=== PATIENT | female | born 2000 | race Caucasian/White ===

== ENCOUNTER 2024-08-29 17:56 | Emergency (ER) | payer OTHER, SELFPAY ==
--- NOTE | 2024-08-29 18:11 | ED.GENADULT ---
HPI - General Adult General Chief complaint: General Medical Stated complaint: Nausea, light headed, dehydration Time Seen by Provider: 08/29/24 19:52 Source: patient Mode of arrival: ambulatory Limitations: no limitations History of Present Illness ED Provider: Elizabeth Brown NP HPI narrative: Patient is a 24-year-old female who presents emergency department for evaluation. She is a LMP 07/11/2024 with positive home test approximately 1 week ago. Has not yet established care with an OB provider. She reports that over the past 3 days she has been feeling nauseous and having some lightheadedness. She has been eating less than usual. She states adamantly that she has remained well hydrated, drinking multiple bottles of water daily. She denies abdominal pain. Denies abnormal vaginal bleeding or discharge. No pelvic pain or cramping. Related Data Previous Rx's ?Medication ?Instructions ?Recorded doxylamine succinate 25 mg tablet 25 mg PO BEDTIME PRN nausea #20 08/29/24 ([employer] (doxylamine)) tabs vits no.126-ferrous fum 1 tab PO DAILY #30 tabs 08/29/24 28 mg iron-folic acid 800 mcg tablet (Classic ) pyridoxine (vitamin B6) 25 mg 25 mg PO TID #30 tabs 08/29/24 tablet Allergies Allergy/AdvReac Type Severity Reaction Status Date / Time fruit Allergy Hives Uncoded 08/29/24 18:16 Review of Systems Review of Systems: Yes all other systems are reviewed and are negative PMFSH Past Medical History Attestation statement: The following information was validated with the patient. Source: old records reviewed Social History Social History Alcohol intake: former Smoked in Last 30 Days: No Use of substances other than those prescribed or required for medical reasons: No Advance Directives: No Advance Directives Information Provided: Yes Patient : Yes Physical Exam ED Vital Signs: Vital Signs - 24 hr 08/29/24 18:12 08/29/24 20:15 08/29/24 20:15 Temperature 97.5 F Pulse Rate 82 78 89 Respiratory Rate 16 Blood Pressure 125/79 98/70 103/76 Pulse Oximetry 100 Oxygen Delivery Method Room Air 08/29/24 20:16 08/29/24 21:40 Temperature 97.9 F Pulse Rate 90 90 Respiratory Rate 16 Blood Pressure 109/80 109/80 Pulse Oximetry 99 Oxygen Delivery Method Room Air BMI result Body Mass Index 18.1 Appearance: Alert.?Oriented to person, place and time. No acute distress.?Normal affect. CVS: Heart sounds normal. Normal heart rate and rhythm.? Pulses normal.?? Respiratory: No respiratory distress.? Lung sounds clear to auscultation bilaterally?? Abdomen: Soft and non-tender. Normoactive bowel sounds. Skin: Skin warm and dry.? Normal skin color.? Extremities: No lower extremity edema.? Neuro: Moves all extremities spontaneously. Sensation intact bilaterally. Ambulates with normal steady gait. Course Course Course Narrative: This is an RME: Additional HPI, ROS, PE not included below will be deferred to primary provider. RME assessment and note performed by: Cristiana Matias PA-C 24-year-old female here for 3 days of nausea, lightheadedness. States she feels dehydrated. Took test at home which was positive 1 week ago. LMP: 07/11. Medical Decision Making Medical Decision Making MDM Narrative: Patient is a 24-year-old female presenting for evaluation of nausea and lightheadedness in the setting of early as per HPI. Overall she is well-appearing, nontoxic, afebrile. She has no neurological deficits. Orthostatic vital signs are negative. She has serum labs obtained prior to my assumption. CBC is without leukocytosis anemia or thrombocytopenia. No electrolyte derangement. No NICANOR. LFTs unremarkable. HCG 48,335, based on LMP estimated due date of 04/17/2024 correlating with her hCG levels. She has not established OB care. I advised her of her local options to establish care with, also discuss the use of Pyridium and doxylamine at bedtime for nausea associated with . She has no concerning symptoms to suggest ectopic . She has a benign physical examination. I did discuss with her obtaining a urinalysis to assure no urinary tract infection, she would like to leave the department at this time, she denies any dysuria, urinary frequency/urgency/hesitancy, does not want to wait any longer for urinalysis. At this time feel that she is stable for discharge home, outpatient follow-up with OB and given strict return precautions. Differential Diagnosis Differential Diagnoses: The differential diagnosis associated with the presentation includes (See narrative above) Admission/Observation Consideration of admission/observation: Escalation of care including admission/observation considered Lab Data MDM Lab Attestation statement: I reviewed the patient's lab results. (See narrative above) 08/29/24 18:48 08/29/24 18:48 Labs: Lab Results 08/29/24 Range/Units 18:48 WBC 9.8 (4.8-10.8) X10*3/uL RBC 4.51 (4.20-5.50) X10*6/uL Hgb 13.1 (12.0-16.0) g/dl Hct 37.9 (37.0-47.0) % MCV 84.0 (80.0-98.0) fL MCH 29.0 (27.0-33.0) pg MCHC 34.6 (31.0-35.0) g/dl RDW 14.0 (11.0-16.0) % Plt Count 298 (160-400) X10*3/uL MPV 11.9 (9.4-12.3) fL Immature Gran % (Auto) 0.3 (0.0-0.4) % Neut % (Auto) 62.3 (45-73) % Lymph % (Auto) 28.0 (20-40) % Cris[place] % (Auto) 6.1 (2-11) % Eos % (Auto) 2.5 (0-4) % Baso % (Auto) 0.8 (0-2) % Lymph # (Auto) 2.7 (1.2-4.9) X10*3/uL [place] # (Auto) 0.6 (0.1-1.2) X10*3/uL Eos # (Auto) 0.2 (0.0-0.4) X10*3/uL Baso # (Auto) 0.1 (0.0-0.2) X10*3/uL Abs Immat Gran (auto) 0.03 (0.00-0.03) X10*3/uL Absolute Neuts (auto) 6.1 (2.0-8.3) x10*3/uL Absolute Nucleated RBC 0.000 (0.0-0.012) X10*3/uL Nucleated RBC % (auto) 0.0 (0.0-0.2) /100WBC Sodium 136 (135-145) mmol/L Potassium 3.7 (3.3-5.1) mmol/L Chloride 105 (96-108) mmol/L Carbon Dioxide 23 (22-29) mmol/L Anion Gap 12 (12-20) BUN 13 (9-16) mg/dL Creatinine 0.59 (0.5-1.4) mg/dL Estim Creat Clear Calc 106.3 Estimated GFR > 60 Random Glucose 88 (60-115) mg/dL Calcium 9.1 (8.4-10.2) mg/dL Magnesium 1.9 (1.6-2.6) mg/dL Total Bilirubin 0.5 (0.0-1.0) mg/dL AST 18 (5-31) U/L ALT 15 (0-31) U/L Alkaline Phosphatase 75 (39-117) U/L Total Protein 7.2 (6.5-8.0) g/dL Albumin 4.6 (3.5-5.0) g/dL Beta HCG, Quant 54216 mIU/mL Independent Historian Clinical information obtained from an independent historian. History obtained from or confirmed by: Spouse External Record Review External record reviewed: Outpatient record Prescription Management I considered prescription management with: Other (See narrative above) Discharge Plan Discharge Clinical Impression: related nausea, antepartum Patient Disposition: Home, Self-Care Instructions: Acute Nausea and Vomiting (ED) Additional Instructions: Be sure to stay well hydrated, drink plenty of fluids, eat small more frequent meals throughout the day, slowly change positions. Prescription for vitamin B6/pyridoxine and Unisom/doxy Antunez has been sent to the pharmacy to help with nausea. Take as prescribed. As discussed, you will need to make a decision as to where he would like to establish your OB care, please consider doing this soon that so that you may establish an appointment. You may return to emergency department any new or worsening symptoms or concerns. Please see list of local OBGYN providers below: OBGYN and Midwifery [facility] [address] [phone] [facility] [address] [phone] [facility] [address] [place] [phone] [phone] Prescriptions: New pyridoxine (vitamin B6) 25 mg tablet 25 mg PO TID Qty: 30 0RF [employer] (doxylamine) 25 mg tablet 25 mg PO BEDTIME PRN (Reason: nausea) Qty: 20 0RF Classic 28 mg iron- 800 mcg tablet 1 tab PO DAILY Qty: 30 0RF Referrals: Physician,Unknown J [Primary Care Provider, Medical] Interventions: ED Discharge Assessment Last Done: 08/29/24 21:40 Discharge Date/Time: 08/29/24 21:45 Print Language: Slovak
[2024-08-29 18:12] VITALS: BP 125/79; PULSE 82; RESP 16; TEMP 36.4; O2SAT 100; BMI 18.1
[2024-08-29 18:52] LABS: MANUAL DIFF FLAG NO
[2024-08-29 19:14] LABS: Alanine Aminotransferase 15 U/L (0-31); Albumin Level 4.6 g/dL (3.5-5.0); Alkaline Phosphatase 75 U/L (39-117); Anion Gap 12 (12-20); Aspartate Amino Transferase 18 U/L (5-31); Bilirubin Total 0.5 mg/dL (0.0-1.0); Blood Urea Nitrogen 13 mg/dL (9-16); Calcium 9.1 mg/dL (8.4-10.2); Carbon Dioxide 23 mmol/L (22-29); Chloride 105 mmol/L (96-108); Creatinine Clr Calc Pharmacy 106.3; Estimated Glomerular Filt Rate > 60; Glucose Random 88 mg/dL (60-115); Magnesium 1.9 mg/dL (1.6-2.6); Potassium 3.7 mmol/L (3.3-5.1); Sodium 136 mmol/L (135-145); Total Protein 7.2 g/dL (6.5-8.0)
[2024-08-29 19:15] LABS: Basophils Absolute Auto 0.1 X10*3/uL (0.0-0.2); Basophils Percent Auto 0.8 % (0-2); Eosinophils Absolute Auto 0.2 X10*3/uL (0.0-0.4); Eosinophils Percent Auto 2.5 % (0-4); Hematocrit 37.9 % (37.0-47.0); Hemoglobin 13.1 g/dl (12.0-16.0); Imm Gran Abs Auto 0.03 X10*3/uL (0.00-0.03); Imm Gran Pct Auto 0.3 % (0.0-0.4); Lymphocytes Absolute Auto 2.7 X10*3/uL (1.2-4.9); Mean Corpuscular HGB Conc 34.6 g/dl (31.0-35.0); Mean Platelet Volume 11.9 fL (9.4-12.3); Monocytes Absolute Auto 0.6 X10*3/uL (0.1-1.2); Monocytes Percent Auto 6.1 % (2-11); Neutrophils Absolute Auto 6.1 x10*3/uL (2.0-8.3); Neutrophils Percent Auto 62.3 % (45-73); Platelet Count 298 X10*3/uL (160-400); Red Blood Count 4.51 X10*6/uL (4.20-5.50); White Blood Count 9.8 X10*3/uL (4.8-10.8)
[2024-08-29 20:15] VITALS: BP 103/76; BP 98/70; PULSE 78; PULSE 89
[2024-08-29 20:16] VITALS: BP 109/80; PULSE 90
[2024-08-29 21:40] VITALS: BP 109/80; PULSE 90; RESP 16; TEMP 36.6; O2SAT 99
== END 2024-08-29 21:45 | disposition home or self-care (01) ==
PROVIDERS: Emergency Provider Internal Medicine
DX: R11.2 Nausea with vomiting, unspecified (principal); R42 Dizziness and giddiness; E86.0 Dehydration; Z79.899 Other long term (current) drug therapy
CPT/HCPCS: 36415; 80053; 83735; 84702; 85025; 99283; 99284

== ENCOUNTER 2024-12-26 16:53 | Emergency (ER) | payer OTHER, SELFPAY ==
--- NOTE | ~2024-12-26 | XR_ITS ---
EXAMINATION: XR CHEST 2 VIEWS HISTORY: short of breath COMPARISON: There are no prior studies available for comparison. FINDINGS: PA and lateral views of the chest are submitted. The lungs are expanded and clear. There is no pleural effusion, pneumothorax, or pulmonary vascular congestion. The heart is normal in size. The bones are intact. There is gaseous distention of the stomach. XR/XR chest 2V IMPRESSION: Normal examination of the chest. Electronically signed by: Richard Cox MD 12/27/2024 07:08 AM EDT
[2024-12-26 17:01] VITALS: BP 123/82; PULSE 119; RESP 18; TEMP 36.5; O2SAT 100; BMI 16.7
--- NOTE | 2024-12-26 17:05 | ED_ITS ---
HPI - General Adult General Chief complaint: Asthma Stated complaint: sob/asthma Time Seen by Provider: 12/26/24 17:51 Source: patient Mode of arrival: ambulatory Limitations: no limitations History of Present Illness ED Provider: HPI narrative: 24-year-old with a history of asthma for many years, has been having worsening symptoms for the past 2 weeks, she does use Ventolin more often she reports and use his Symbicort and regular basis nonsmoker nondrinker does not vape. No new allergies or exposures reported. Related Data Previous Rx's ?Medication ?Instructions ?Recorded doxylamine succinate 25 mg tablet 25 mg PO BEDTIME PRN nausea #20 08/29/24 ([employer] (doxylamine)) tabs vits no.126-ferrous fum 1 tab PO DAILY #30 ta bs 08/29/24 28 mg iron-folic acid 800 mcg tablet (Classic ) pyridoxine (vitamin B6) 25 mg 25 mg PO TID #30 tabs tablet prednisone 20 mg tablet 40 mg (2 x 20 mg) PO DAILY 5 days 12/26/24 #10 tabs Allergies Allergy/AdvReac Type Severity Reaction Status Date / Time fruit Allergy Hives Uncoded 12/26/24 17:03 Review of Systems 2 Constitutional: Constitutional: Reports as per [facility] Social History Social History Alcohol intake: former Physical Exam ED Exam Exam: General: ?Appears of stated age ? ?PERRLA, EOMI, MMM, uvula midline, TMs unremarkable ? Neck: Supple, no LAD ? ?CV: RRR, no obvious murmurs appreciated ? ?Resp: ?No wheezing rales rhonchi no stridor moving air well ? Abd: ?Bowel sounds are present, no tenderness no rebound no rigidity ? ?MSK: FROM, strength 5/5 all extremities ? Skin: Warm, dry, intact, ? ?Neuro: ?Alert and oriented x3, moving upper and lower extremities symmetrically, no obvious facial asymmetry noted, cranial nerves 2-12 intact Vital Signs: Vital Signs - 24 hr 12/26/24 17:01 Temperature 97.7 F Pulse Rate 119 H Respiratory Rate 18 Blood Pressure 123/82 Pulse Oximetry 100 Oxygen Delivery Method Room Air BMI result Body Mass Index 16.7 Course Course Course Narrative: This is a Rapid Medical Examination (RME) performed by Clarissa Mcnulty PA-C in triage. Full HPI, ROS, assessment and treatment plan per primary provider in the Main ED. Hx: 24 nyo F here w/ sob. History of asthma, using inhalers at home without improvement. Last used this approximately 3 hours ago. No recent travel/long car rides. No OCP use. PE/vitals: Tachycardic. Lungs CTA throughout. Plan: Labs, viral swabs, EKG, chest x-ray Medical Decision Making Medical Decision Making [facility] Narrative: 6:21 PM 12/26/2024 (Dr. Zoran Tang): Overall well-appearing, chest x- ray without pneumonia, pneumothorax, somewhat hyperinflated lungs, we will get a nebulizer treatment, initiate steroids, ECG with tachycardia, I did not elicit PE risk factors, she is not on control pills, has been using Ventolin that can explain her tachycardia, no evidence for dehydration clinically or blood work Differential Diagnosis Differential Diagnoses: The differential diagnosis associated with the presentation includes (Asthma exacerbation, pneumonia, PE, allergies) Admission/Observation Consideration of admission/observation: Escalation of care including admission/observation considered Lab Data [facility] Lab Attestation statement: I reviewed the patient's lab results. 12/26/24 17:19 12/26/24 17:19 Labs: Lab Results 12/26/24 Range/Units 17:19 WBC 12.0 H (4.8-10.8) X10*3/uL RBC 4.51 (4.20-5.50) X10*6/uL Hgb 12.6 (12.0-16.0) g/dl Hct 39.0 (37.0-47.0) % MCV 86.5 (80.0-98.0) fL MCH 27.9 (27.0-33.0) pg MCHC 32.3 (31.0-35.0) g/dl RDW 14.3 (11.0-16.0) % Plt Count 259 (160-400) X10*3/uL MPV 12.0 (9.4-12.3) fL Immature Gran % (Auto) 0.3 (0.0-0.4) % Neut % (Auto) 71.7 (45-73) % Lymph % (Auto) 17.3 L (20-40) % [place] % (Auto) 7.9 (2-11) % Eos % (Auto) 2.0 (0-4) % Baso % (Auto) 0.8 (0-2) % Lymph # (Auto) 2.1 (1.2-4.9) X10*3/uL [place] # (Auto) 1.0 (0.1-1.2) X10*3/uL Eos # (Auto) 0.2 (0.0-0.4) X10*3/uL Baso # (Auto) 0.1 (0.0-0.2) X10*3/uL Abs Immat Gran (auto) 0.04 H (0.00-0.03) X10*3/uL Absolute Neuts (auto) 8.6 H (2.0-8.3) x10*3/uL Absolute Nucleated RBC 0.000 (0.0-0.012) X10*3/uL Nucleated RBC % (auto) 0.0 (0.0-0.2) /100WBC Sodium 143 (135-145) mmol/L Potassium 3.3 (3.3-5.1) mmol/L Chloride 110 H (96-108) mmol/L Carbon Dioxide 25 (22-29) mmol/L Anion Gap 11 L (12-20) BUN 14 (9-16) mg/dL Creatinine 0.65 (0.5-1.4) mg/dL Estim Creat Clear Calc 91.5 Estimated GFR > 60 Random Glucose 82 (60-115) mg/dL Calcium 9.4 (8.4-10.2) mg/dL Magnesium 2.0 (1.6-2.6) mg/dL Total Bilirubin 0.5 (0.0-1.0) mg/dL AST 22 (5-31) U/L ALT 23 (0-31) U/L Alkaline Phosphatase 90 (39-117) U/L Total Protein 7.4 (6.5-8.0) g/dL Albumin 4.6 (3.5-5.0) g/dL COVID-19 (MARIO) Negative (Negative) COVID-19 Clin Com See Note Influenza Type A (BLAIR) Negative (Negative) Influenza Type B (BLAIR) Negative (Negative) Influenza A & B Note See Note S. pyogenes GrpA BLAIR Negative (Negative) Independent Interpretation I performed an independent interpretation of an: EKG (122 sinus tachycardia) Discharge Plan Discharge Clinical Impression: Asthma with acute exacerbation Additional Instructions: Two puffs of Ventolin every 4 hours for the rest of the day and at least for half update tomorrow, continue steroids starting tomorrow 1st dose in the ER, follow up with the PCP, chest x-ray without any evidence of infection, blood work reassuring, EKG with fast heart rate likely due to Ventolin, , you did have slightly elevated heart rate which may be due to Ventolin, few spike fevers if you have worsening issues breathing any other concerns come back to the ER otherwise follow up with the your PCP Prescriptions: New prednisone 20 mg tablet 40 mg PO DAILY 5 Days Qty: 10 0RF No Action pyridoxine (vitamin B6) 25 mg tablet 25 mg PO TID Qty: 30 0RF [employer] (doxylamine) 25 mg tablet 25 mg PO BEDTIME PRN (Reason: nausea) Qty: 20 0RF Classic 28 mg iron- 800 mcg tablet 1 tab PO DAILY Qty: 30 0RF Print Language: Tanzanian
--- NOTE | 2024-12-26 17:05 | ECG_ITS ---
Test Reason : sob Blood Pressure : */* mmHG Vent. Rate : 122 BPM Atrial Rate : 122 BPM P-R Int : 148 ms QRS Dur : 70 ms QT Int : 288 ms P-R-T Axes : 73 97 -7 degrees QTcB Int : 410 ms Sinus tachycardia Possible Left atrial enlargement Rightward axis T wave abnormality, consider inferior ischemia Abnormal ECG No previous ECGs available Referred By: Mimi Mcnulty Electronically Signed By: JEWEL NDIAYE MD
[2024-12-26 17:30] LABS: MANUAL DIFF FLAG NO
[2024-12-26 17:32] LABS: Hematocrit 39.0 % (37.0-47.0); Hemoglobin 12.6 g/dl (12.0-16.0); Imm Gran Abs Auto 0.04 X10*3/uL (0.00-0.03); Imm Gran Pct Auto 0.3 % (0.0-0.4); Lymphocytes Absolute Auto 2.1 X10*3/uL (1.2-4.9); Mean Corpuscular HGB Conc 32.3 g/dl (31.0-35.0); Mean Corpuscular Hemoglobin 27.9 pg (27.0-33.0); Mean Corpuscular Volume 86.5 fL (80.0-98.0); NRBC Abs Auto 0.000 X10*3/uL (0.0-0.012); NRBC Pct Auto 0.0 /100WBC (0.0-0.2); Platelet Count 259 X10*3/uL (160-400); Red Blood Count 4.51 X10*6/uL (4.20-5.50); White Blood Count 12.0 X10*3/uL (4.8-10.8)
[2024-12-26 17:47] LABS: Alanine Aminotransferase 23 U/L (0-31); Albumin Level 4.6 g/dL (3.5-5.0); Alkaline Phosphatase 90 U/L (39-117); Anion Gap 11 (12-20); Aspartate Amino Transferase 22 U/L (5-31); Blood Urea Nitrogen 14 mg/dL (9-16); COVID-19 Test Negative (Negative); Calcium 9.4 mg/dL (8.4-10.2); Carbon Dioxide 25 mmol/L (22-29); Chloride 110 mmol/L (96-108); Creatinine Clr Calc Pharmacy 91.5; Estimated Glomerular Filt Rate > 60; IDNOW Serial# 08D9AD1C; IDNOW Serial# 55D5AD1C; IDNOW Serial# 58CA691E; Influenza B2 Negative (Negative); Magnesium 2.0 mg/dL (1.6-2.6); Potassium 3.3 mmol/L (3.3-5.1); Sodium 143 mmol/L (135-145); Strep A Nucleic Acid Negative (Negative); Total Protein 7.4 g/dL (6.5-8.0)
[2024-12-26 17:55] LABS: Troponin-I High Sensitivity < 2.7 ng/L (<3.5-17.0)
[2024-12-26 18:00] VITALS: BP 110/70; PULSE 109; RESP 22; TEMP 36.9; O2SAT 98
[2024-12-26] MEDS: levalbuterol HCL 3.75 MG, Ipratropium Bromide 0.5 MG INHALE (18:32)
[2024-12-26 18:34] VITALS: PULSE 116; RESP 22; O2SAT 95
[2024-12-26 20:06] VITALS: BP 125/70; PULSE 116; RESP 15; TEMP 36.8; O2SAT 99
[2024-12-26 20:17] VITALS: BP 125/70; PULSE 116; RESP 15; TEMP 36.8; O2SAT 99
--- OUTSIDE RECORDS SUMMARY | 2024-12-26 22:32 | XMS_ITS | Clinical Summary ---
Author Organization [facility] Address [address] [place] [phone] Phone Care Team Providers Care Supervisor Transferring And Boxing Name Role Phone Oscar Méndez MD Primary Care Provider Allergies Active Allergy Reactions Criticality Noted Date Comments Fruit Extracts 03/28/2024 Medications albuterol (VENTOLIN HFA) 90 mcg/actuation inhaler Inhale 2 puffs into the lungs every 4 (four) hours as needed for shortness of breath/dyspnea . Active budesonide-form oterol (SYMBICORT) 80-4.5 mcg/actuation inhaler Inhale 2 puffs into the lungs 2 (two) times a day. 4 Active oseltamivir (TAMIFLU) 75 mg capsule Take 1 capsule (75 mg total) by mouth 2 (two) times a day. 9 capsule 5 Active Social History Tobacco Use Types Packs/Day Years Used Date Smoking Tobacco: Never Assessed Education Answer Date Recorded Are you interested in more education? Not on yaneth e 03/29/2024 Are you concerned about learning? Not on file 03/29/2024 No 03/29/2024 No 03/29/2024 Digital Access Answer Date Recorded No 03/29/2024 No 03/29/2024 Reliable internet access at home? Not on file 03/29/2024 Device with a working camera? Not on file Intimate Partner Violence Answer Date R ecorded Are you denied basic needs s uch as food, clothing, or medical care? No 03/28/2024 In the past 12 months have y ou been in a relationship with a person who hurts, threatens, or tries to control you? No 03/28/2024 Are you denied basic needs s uch as food, clothing, or medical care? No 03/28/2024 In the past 12 months have y ou been in a relationship with a person who hurts, threatens, or tries to control you? No 03/28/2024 Comments Unknown Sex and Gender Information Value Date Recorded Sex Assigned at Female 03/28/2024 10:41 PM EST Legal Sex Female 10:17 PM EST Gender Identity Female 03/28/2024 10:41 PM EST Sexual Orientation Don't know 03/28/2024 10 :41 PM EST Last Filed Vital Signs Vital Sign Reading Time Taken Comments Blood Pressure 105/65 03/29/2024 12:28 AM EST Pulse 108 03/29/2024 12:28 AM EST Temperature 37.4 C (99.3 F) 03/29/2024 12:28 AM EST Respiratory Rate 20 03/29/2024 12:28 AM EST Oxygen Saturation 97% 03/29/2024 12:28 AM EST Inhaled Oxygen Concentration - - Weight 42.2 kg (93 lb) 03/28/2024 10:25 PM EST Height 157.5 cm (5' 2 ) 03/28/2024 10:25 PM EST Body Mass Index 17.01 03/28/2024 10:25 PM EST Plan of Treatment Health Maintenance Due Date Last Done Comments Adult Td,Tdap Booster 2002 DEPRESSION SCREENING 2014 SMOKING Hx and SMOKELESS TOB ACCO SCREENING 08/20/2015 HPV VACCINES (1 - 3-dose series) 2017 CHLAMYDIA SCREENING 2018 MENINGOCOCCAL VACCINES (B) ( 1 of 2 - Standard) 2018 HEPATITIS C SCREENING 2020 HIV ONE-TIME SCREENING (18-6 5 YEARS) 2020 PAP SMEAR 08/20/2023 INFLUENZA VACCINE (#1) 2024 COVID-19 VACCINE ( - 2024-2 6 season) 2024 HEPATITIS A VACCINES Aged Out No long er eligible based on patient's age to complete this topic HIB VACCINES Aged Out No longer eligi ble based on patient's age to complete this topic MENINGOCOCCAL VACCINES (ACWY) Aged Out No longer eligible based on patient's age to complete this topic PNEUMOCOCCAL VACCINES (0-49 years) Aged Out No longer eligible based on patient's age to complete this topic Medical Devices Not on file Insurance Care Teams Supervisor Transferring And Boxing Relationship Specialty Start Date End Date Oscar Méndez MD [address] [id number] PCP - General Pediatrics 03/28/24 Additional Source Comments The information contained in this document represents components of the legal health record. It is not the complete legal health record.[facility]
--- OUTSIDE RECORDS SUMMARY | 2024-12-26 22:32 | XMS_ITS | Data Portability ---
Author Organization DIEGO Maldonado [facility], [address] Address [address] [place] [address] Assessment No assessment recorded. Plan of Treatment Reminders Order Date Submit Date Provider Last Modified By Organization Details Last Modified Time Details Appointments None recorded. Lab rapid SARS CoV 2 Ag, QL IA, respiratory specimen 2021 022 [place] [address] [facility], [address] [place] [address], [address], 14:30:00 rapid flu (A+B) 2021 [place] [address] [facility], [address] [place] [address], [address], 14:30:00 Referral None recorded. Procedures None recorded. Surgeries None recorded. Imaging None recorded. Medication Orders None recorded. Patient TargetsNo targets recorded. Patient Instructions Encounter Date Encounter Id Patient Instructions Last Modified By Organization Details Last Modified Time 03/03/2022 [id number] things to do when you have covid-19 [email or web address] Not available 03/03/2022 14:30:00 coronavirus (covid-19): care instructions [email or web address] Not available 03/03/2022 14:30:00 cough: care instructions [email or web address] Not available 03/03/2022 14:30:00 If you did not have any COVID 19 Symptoms According to CDC guidelines and current clinical data it is still possible that you may develop new symptoms or even spread the virus to others for up to 10 days after a positive COVID-19 test result. The purpose of this clinical plan is to monitor you for the development of new symptoms and to help guide you when it is safe to go back to work as well as stop self-quarantine practices. If you were/are currently experiencing COVID19 Symptoms. You no longer need isolation precautions or any further testing when: 1) At least 5 days have passed since your symptoms first appeared and your symptoms are resolving or improved 2) You have had no fever for at least 24 hours without the use medicine that reduces fever 3) Use of an N-95 mask for the remaining 5 days. OR 3) If you are still symptomatic without significant improvement continue to isolate for the full 10 days from onset of symptoms. We understand that this is a stressful time for you and your family, but we are here to guide you through the process. Please message us if you have any questions or concerns. Caution: Please go to the nearest ER/call 911 for ambulance transport immediately if you develop the following symptoms: difficulty breathing, pain with deep breaths, coughing up blood, difficulty talking, difficulty swallowing fluids/food, chest pain/tightness, palpitations, severe headache, severe neck pain, dizziness, feeling faint, muscle weakness, numbness/tingling , vision changes, speech changes, seizure, unusual bruising, abdominal pain, vomiting blood, blood in your stool, confusion, or any other potentially life-threatening symptoms. We are including here additional information for your review on COVID-19 background and prevention tips. [email or web address] Not available 03/03/2022 14:29:59 Reason for Referral None Reported. Results Created Date Observation Date Name Description Value Unit Range Abnormal Flag Note LastModifiedBy Organization Detail LastModifiedTime 03/03/20 22 03/03/2022 rapid flu (A+B) Unknown Analyte Normal = Negati ve Not Available [facility] [address] [place], [address], 03/03/2022 13:28:34 03/03/20 22 03/03/2022 rapid flu (A+B) Unknown Analyte negati ve Not Available _[facility] [address] [place] [address] [place], [address], 03/03/2022 13:28:34 03/03/20 22 03/03/2022 rapid flu (A+B) Unknown Analyte negati ve Not Available [facility] [address], [place], [address], 03/03/2022 13:28:34 03/03/20 22 03/03/2022 rapid flu (A+B) Unknown Analyte Normal = Negati ve Not Available [address] [place] [address], [place], [address], 03/03/2022 13:28:34 03/03/20 22 03/03/2022 rapid SARS CoV 2 Ag, QL IA, respi rator y speci men Unknown Analyte Normal =Negat luis a Not Available [address] [place] [address], [place], [address], 03/03/2022 13:28:30 03/03/20 22 03/03/2022 rapid SARS CoV 2 Ag, QL IA, respi rator y speci men Unknown Analyte positi ve Not Available [address] [place] [address], [place], [address], 03/03/2022 13:28:30 Result Notes None recorded. Problems Name Problem SNOMED Code Status Onset Date Resolution Date Notes Provider Name and Address Organization Details Recorded Time Asthma 046915478 Active 022 DIEGO Castano - [facility] 03/03/2022 13:28:03 Problem Notes None recorded. Medical Equipment None Reported. Allergies No known drug allergies Medications Name Sig Start Date Stop Date Status Note LastModified by Organization Details LastModified Time hyoscyamine 0.125 mg disintegrati ng tablet Place 1 tablet every 4 hours by sublingual route. active Not Available Not Available No t Available Ventolin HFA 90 mcg/actuatio n aerosol inhaler Inhale 2 puffs every 4 hours by inhalation route. active Not Available Not Available No t Available Singulair active Not Available Not Sophy ilable Not Available Symbicort active Not Available Not Sophy ilable Not Available Vitals Date Recorded Oxygen saturation Oxygen saturation in Arterial blood by Pulse oximetry Heart rate Respiratory rate Body temperature Body height Body mass index (BMI) [Percentile] Per age and sex Body mass index (BMI) Body weight Systolic And Diastolic Provider Name and Address Organization Details Last Updated DateTime 99 % 99 % 99 /min 20 /min 99.3 [degF] 162.56 cm 2 % 17.2 kg/m2 44145.2 4 g 120/82 mm[Hg] Viviane Salmeron [facility] 13:37:33 Social History Question Answer Notes LastModified by Codeoscopic Details LastModified Time Tobacco Smoking Status Never Smoker Viviane stone PA [facility] 03/03/2022 13:28:21 Have You Had Direct Contact, Or Contact During Intimacy, With Monkeypox Rash, Scabs, Or Body Fluids From A Person With Monkeypox? No Information not available 03/03/2022 Have You Recently Traveled Abroad? No Information not available 03/03/2022 Sex: Unknown Functional Status Question Answer Note LastModified by [facility] [place] Details LastModified Time Do you use any illicit or recreational drugs? No Information not available 03/03/2022 Do you or have you ever used any other forms of tobacco or nicotine? No Information not available 03/03/2022 What is your level of alcohol consumption? None Information not available 03/03/2022 Mental Status None recorded. Family History Relationship Description Onset Age of this Age Resolved Age Notes LastModified by Organization Details LastModified Time Father No current problems or disability Not available 03/03 13:28:08 Mother No current problems or disability Not available 03/03 13:28:08 Medical History No medical history recorded. Gynecological HistoryNo gynecological history recorded. Obstetrics History GPAL:G 0 P 0 0 0 0 Immunizations Vaccine Type Date Status Note Provider Nam e and Address Organization Details Recorded Time COVID-19, mRNA, LNP-S, PF, 30 mcg/0.3 mL dose, eugenia-sucrose 06/02/2021 completed Viviane Faviola null, PA - [facility] 03/03/2022 13:26:55 COVID-19, mRNA, LNP-S, PF, 30 mcg/0.3 mL dose 10/19/2020 completed Viviane Landers null, PA - [facility] 03/03/2022 13:26:55 COVID-19, mRNA, LNP-S, PF, 30 mcg/0.3 mL dose 11/09/2020 completed Viviane Faviola null, PA - [facility] 03/03/2022 13:26:55 Past Encounters Encounter ID Performer Location Encounter Start Date Encounter Closed Date Diagnosis/Indication Diagnosis SNOMED-CT Code Diagnosis ICD10 Code Diagnosis IMO Codes Diagnosis Note [id number] [address] [address] [address] [facility] [place] [address] 09/26/2020 12:21:04 09/26/2020 13:45:37 [id number] [address] [address] [address] [place] [address] 10/06/2020 15:41:08 10/06/2020 16:39:05 [id number] [address] [address] [place] [address] 07/20/2021 09:52:19 07/20/2021 11:10:45 [id number] [address] [place] [address] 10/07/2016 16:17:51 10/07/2016 17:05:57 [id number] [address] [address] [place] [address] 01/11/2021 12:10:59 01/11/2021 13:26:30 [id number] DIEGO DICKINSON [address] [place] [address] 03/03/2022 11:49:43 03/03/2022 14:38:20 Acute upper respiratory infection 89228389 J06.9 COVID-19 339894341 U07.1 Health Concerns Section Related Observation LastModified by Organization Detai ls LastModified Time None Recorded Concern Status LastModified by Organization Details LastModified Time None Recorded Advance Directives Directive None Recorded Payers Insurance Date Sequence Insurance Name Policy Number Policy Fernández Covered Member ID Fernández Member ID Guarantor Name 09/13/2022 1 [facility] [employer] - TOGETHER (MEDICAID HMO) [id number] [id number] [address] 03/03/20[address] OC-ESCRE[address] [facility] [address] Notes Date Note Type Note Provider Name and Address Organization Details Recorded Time 03/03/2022 text/html Nahomi is a 21 yo F with PMH asthma here for URI symptoms onset a couple days. Boyfriend tested positive for covid. Sister tested positive for flu last week. Flu/covid testing DIEGO SAMUEL [address] [place] [place], [address], [place] - [facility] 03/03/2022 14:37:35 OBGyn Episode No OBEpisode recorded.
--- OUTSIDE RECORDS SUMMARY | 2024-12-26 22:32 | XMS_ITS | Clinical Summary ---
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 Role Phone Unavailable Primary Care Provider Unavailabl e Encounters Date Type Department Care Team Description 10/09/2024 Travel from Last 3 Months Social History Tobacco Use Types Packs/Day Years Used Date Smoking Tobacco: Never Assessed Comments Unknown Sex and Gender Information Value Date Recorded Sex Assigned at Not on file Legal Sex Female 11:58 AM EDT Gender Identity Not on file Sexual Orientation Not on file Plan of Treatment Health Maintenance Due Date Last Done Comments Hepatitis C Virus Screening 2002 HIV Screening 08/20/2015 HPV Vaccines (1 - 3-dose series) 2017 DTaP/Tdap/Td Vaccines (1 - Tdap) 2021 Hepatitis B Vaccines (1 of 3 - 19+ 3-dose series) 2021 COVID-19 Vaccine ( - 2023-2 5 season) 2024 Pneumococcal Vaccine: Pediat renu (0-5 Years) and At-Risk Patients (6 to 49 Years) Aged Out No longer eligible b ased on patient's age to complete this topic
== END 2024-12-26 20:18 | disposition home or self-care (01) ==
PROVIDERS: Physician Assistant Medical; Emergency Provider Emergency Medicine
DX: J45.901 Unspecified asthma with (acute) exacerbation (principal); R06.02 Shortness of breath; R00.0 Tachycardia, unspecified; R10.22 Pelvic and perineal pain left side; Z79.899 Other long term (current) drug therapy; Z11.52 Encounter for screening for COVID-19
CPT/HCPCS: 36415; 71046; 80053; 83735; 84484; 84702; 85025; 87502; 87635; 87651; 93005; 94640; 99284; J8540

== ENCOUNTER → 2024-12-26 17:03 | Outpatient (BNV) | payer SELFPAY | PROVIDERS: Emergency Provider Emergency Medicine; Visit Provider Radiology Diagnostic Radiology | DX: R06.02 Shortness of breath (principal) | CPT/HCPCS: 71046 ==

== ENCOUNTER → 2024-12-26 17:05 | Outpatient (BNV) | payer SELFPAY | PROVIDERS: Emergency Provider Emergency Medicine; Visit Provider Internal Medicine Cardiovascular Disease | DX: R00.0 Tachycardia, unspecified (principal) | CPT/HCPCS: 93010 ==

== ENCOUNTER 2025-01-28 17:12 | Emergency (ER) | payer OTHER, SELFPAY ==
--- NOTE | ~2025-01-28 | XR_ITS ---
CLINICAL HISTORY: SOB, cough Chest Radiographs, 2 views Comparison: 12/26/24 Findings: No cardiomegaly. Normal mediastinal contours. No pneumothorax. No opacity. No pleural effusion. No acute findings in the upper abdomen. No acute fracture. Impression: No acute findings. This document has been electronically signed by: Winnie Castillo MD on 01/28/2025 17:57:21
[2025-01-28 17:17] VITALS: BP 125/85; PULSE 98; RESP 16; TEMP 35.8; O2SAT 100; BMI 17.5
--- NOTE | 2025-01-28 17:20 | ED_ITS ---
HPI - SOB/Dyspnea General Chief Complaint: Asthma Stated Complaint: Shortness Of Breath Related Data Previous Rx's ?Medication ?Instructions ?Recorded doxylamine succinate 25 mg tablet 25 mg PO BEDTIME PRN nausea #20 08/29/24 ([facility]-[employer] (doxylamine)) tabs vits no.126-ferrous fum 1 tab PO DAILY #30 ta bs 08/29/24 28 mg iron-folic acid 800 mcg tablet (Classic ) pyridoxine (vitamin B6) 25 mg 25 mg PO TID #30 tabs tablet prednisone 20 mg tablet 40 mg (2 x 20 mg) PO DAILY 5 days 12/26/24 #10 tabs Allergies Allergy/AdvReac Type Severity Reaction Status Date / Time fruit Allergy Hives Uncoded 01/28/25 17:18 [facility] Social History Social History Alcohol intake: former Advance Directives: No Advance Directives Information Provided: No Physical Exam Vital Signs: Vital Signs: Last Vital Signs Temp 96.5 F L 01/28/25 17:17 Pulse 98 01/28/25 17:17 Resp 16 01/28/25 17:17 BP 125/85 01/28/25 17:17 Pulse Ox 100 01/28/25 17:17 O2 Del Method Room Air 01/28/25 17:17 BMI result Body Mass Index 17.5 Course Course Course Narrative: This is an RME: Additional HPI, ROS, PE not included below will be deferred to primary provider. RME assessment and note performed by: Rowena Cespedes PA-C This is a 24 year old female who presents to the ER with complaints of asthma exacerbation x 2 days. Was seen here in December for same and was put on prednisone, feels as though her symptoms have not resolved. Of note, pt had a medicated assisted termination. No recent travels, surgery or hospitalizations. Plan: Xray, viral swabs, further Er eval needed Reevaluation(s) Reevaluation #1: Patient left without completing treatment. Medical Decision Making Lab Data Labs: Lab Results 01/28/25 Range/Units 17:42 Influenza Type A (PCR) NEGATIVE (Negative) Influenza Type B (PCR) NEGATIVE (Negative) RSV RNA Qual (PCR) NEGATIVE (Negative) SARS-CoV-2 RNA (RT-PCR) NEGATIVE (Negative) Discharge Plan Discharge Clinical Impression: Asthma Patient Disposition: Left W/O Completing Treatment Prescriptions: No Action pyridoxine (vitamin B6) 25 mg tablet 25 mg PO TID Qty: 30 0RF Wal-[facility]uro (doxylamine) 25 mg tablet 25 mg PO BEDTIME PRN (Reason: nausea) Qty: 20 0RF Classic 28 mg iron- 800 mcg tablet 1 tab PO DAILY Qty: 30 0RF prednisone 20 mg tablet 40 mg PO DAILY 5 Days Qty: 10 0RF Discharge Date/Time: 01/28/25 19:38
[2025-01-28 18:23] LABS: Resp Syncy Virus RNA Qual PCR NEGATIVE (Negative); SARS COV2 PCR INHOUSE NEGATIVE (Negative)
--- OUTSIDE RECORDS SUMMARY | 2025-01-28 20:39 | XMS_ITS | Clinical Summary ---
Author Organization [facility] Address [address] [place] [phone] Phone Care Team Providers Care Hotel Yardperson Name Role Phone Oscar Méndez MD Primary [...] Devices Not on file Insurance Care Teams Hotel Yardperson Relationship Specialty Start Date End Date Oscar Méndez MD [address] [address] PCP - General Pediatrics 03/28/24 Additional Source Comments The information contained in this document represents components of the legal health record. It is not the complete legal health record.[facility]
--- OUTSIDE RECORDS SUMMARY | 2025-01-28 20:39 | XMS_ITS ---
Author Name [facility] Organization Unknown Care Team Organization Name Specialty Phone Email Start Date End [facility] 10/09/2024 [facility] ([facility]
--- OUTSIDE RECORDS SUMMARY | 2025-01-28 20:39 | XMS_ITS | Data Portability ---
Author Organization [facility], [address] Address [address] [place] [address] Assessment No assessment recorded. Plan of Treatment Reminders Order Date Submit Date Provider Last Modified By Organization Details Last Modified Time Details Appointments None recorded. Lab rapid SARS CoV 2 Ag, QL IA, respiratory specimen 2021 022 [place] [address] [facility], [address] [place] [address], [address], 14:30:00 rapid flu (A+B) 2021 [place] [address] [facility], [address] [place] [address], [address], 14:30:00 Referral None recorded. Procedures None recorded. Surgeries None recorded. Imaging None recorded. Medication Orders None recorded. Patient TargetsNo targets recorded. Patient Instructions Encounter Date Encounter Id Patient Instructions Last Modified By Organization Details Last Modified Time 03/03/2022 [id number] 10 things to do when you have [...] = Negati ve Not Available [facility] [address] [place], [address], 03/03/2022 13:28:34 03/03/20 22 03/03/2022 rapid flu (A+B) Unknown Analyte negati ve Not Available [address] [place] [address] [place], [address], 03/03/2022 13:28:34 03/03/20 22 03/03/2022 rapid flu (A+B) Unknown Analyte negati ve Not Available [facility] [address], [place], [address], 03/03/2022 13:28:34 03/03/20 22 03/03/2022 rapid flu (A+B) Unknown Analyte Normal = Negati ve Not Available [address] [place] [address], [place], [address], 03/03/2022 13:28:34 03/03/20 22 03/03/2022 rapid SARS CoV 2 Ag, QL IA, respi rator y speci men Unknown Analyte Normal =Negat luis a Not Available [address] [place] [address], [place], [address], 03/03/2022 13:28:30 03/03/20 22 03/03/2022 rapid SARS CoV 2 Ag, QL IA, respi rator y speci men Unknown Analyte positi ve Not Available [address] [place] [address], [place], [address], 03/03/2022 13:28:30 Result Notes None recorded. Problems Name Problem SNOMED Code Status Onset Date Resolution Date Notes Provider Name and Address Organization Details Recorded Time Asthma 669530007 Active 022 DIEGO Castano - [facility] [...] Not Available Vitals Date Recorded Oxygen saturation Heart rate Respiratory rate Body temperature Body height Body mass index (BMI) [Percentile] Per age and sex Body mass index (BMI) Body weight Systolic And Diastolic Provider Name and Address Organization Details Last Updated DateTime 2 99 % 99 /min 20 /min 99.3 [degF] 162.56 cm 2 % 17.2 kg/m2 67308.2 4 g 120/82 mm[Hg] Viviane Salmeron PA - [facility] 2 13:37:33 Social History Question Answer Notes LastModified by Organizat ion Details LastModified Time Tobacco Smoking Status Never Smoker Viviane stone PA - [facility] 03/03/2022 13:28:21 Have You Had Direct Contact, Or Contact During Intimacy, With Monkeypox Rash, Scabs, Or Body Fluids From A Person With Monkeypox? No Information not available 03/03/2022 Have You Recently Traveled Abroad? No Information not available 03/03/2022 Sex: Unknown Functional Status Question Answer Note LastModified by Organizat ion Details LastModified Time Do you use any [...] mcg/0.3 mL dose, eugenia-sucrose 06/02/2021 completed Viviane Euclid null, PA - [facility] 03/03/2022 13:26:55 COVID-19, mRNA, LNP-S, PF, 30 mcg/0.3 mL dose 10/19/2020 completed Viviane Faviola null, PA - [facility] 03/03/2022 13:26:55 COVID-19, mRNA, LNP-S, PF, 30 mcg/0.3 mL dose 11/09/2020 completed Viviane Faviola null, PA - [facility] 03/03/2022 13:26:55 Past Encounters Encounter ID Performer Location Encounter Start Date Encounter Closed Date Diagnosis/Indication Diagnosis SNOMED-CT Code Diagnosis ICD10 Code Diagnosis IMO Codes Diagnosis Note [id number] [address] [address] [facility] [place] [address] 09/26/2020 12:21:04 09/26/2020 13:45:37 [id number] [address] [place] [address] 10/06/2020 15:41:08 10/06/2020 16:39:05 [id number] [address] [address] [place] [address] 07/20/2021 09:52:19 07/20/2021 11:10:45 [id number] [address] [place] [address] 10/07/2016 16:17:51 10/07/2016 17:05:57 [id number] [address] [address] [address] [place] [address] 01/11/2021 12:10:59 01/11/2021 13:26:30 [id number] DIEGO DICKINSON [address] [place] [address] 03/03/2022 11:49:43 03/03/2022 14:38:20 Acute upper respiratory infection 85335490 J06.9 COVID-19 411012462 U07.1 Health Concerns Section Related Observation LastModified by Organization Detai ls LastModified Time None Recorded Concern Status LastModified by Organization Details LastModified Time None Recorded Advance Directives Directive None Recorded Payers Insurance Date Sequence Insurance Name Policy Number Policy Fernández Covered Member ID Fernández Member ID Guarantor Name 09/13/2022 1 [facility] [employer] - TOGETHER (MEDICAID HMO) [id number] [id number] [address] 03/03/2022 OC-ESCREEN [facility]er Jad Notes Date Note Type Note Provider Name and Address Organization Details Recorded Time 03/03/2022 text/html Nahomi is a 21 yo F with PMH asthma here for URI symptoms onset a couple days. Boyfriend tested positive for covid. Sister tested positive for flu last week. Flu/covid testing DIEGO SAMUEL [address] [place], [address], [place] - [facility] 03/03/2022 14:37:35 OBGyn Episode No OBEpisode recorded.
== END 2025-01-28 19:38 | disposition left against medical advice (07) ==
PROVIDERS: Emergency Provider Emergency Medicine; Referring Provider Physician Assistant Medical
DX: J45.909 Unspecified asthma, uncomplicated (principal); R06.02 Shortness of breath; Z03.818 Encounter for observation for suspected exposure to other biological agents ruled out; Z53.29 Procedure and treatment not carried out because of patient's decision for other reasons
CPT/HCPCS: 71046; 87637; 99281; 99283

== ENCOUNTER → 2025-01-28 17:23 | Outpatient (BNV) | payer OTHER, SELFPAY | PROVIDERS: Visit Provider Radiology Diagnostic Radiology | DX: R05.9 Cough, unspecified (principal); R06.02 Shortness of breath | CPT/HCPCS: 71046 ==